=== PATIENT | male | born 2000 | race Caucasian/White ===

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

== ENCOUNTER 2021-10-07 10:32 | Emergency (ER) | payer SELFPAY ==
[2021-10-07 10:49] VITALS: BP 129/82; PULSE 80
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
--- NOTE | 2021-10-07 11:37 | CR ---
PROCEDURE INFORMATION: Exam: XR Right Hand Exam date and time: 10/07/2021 10:47 AM Age: 21 years old Clinical indication: Other: Blocked punch while at work TECHNIQUE: Imaging protocol: XR Right hand. Views: 1 or 2 views. COMPARISON: No relevant prior studies available. FINDINGS: Bones/joints: Normal mineralization and alignment. No fracture, degenerative spur, osseous erosion, joint effusion, joint body or other deformity. Soft tissues: Normal. IMPRESSION: Normal.
== END 2021-10-07 11:55 | disposition home or self-care (01) ==
LOC: DL.ED 10:32
DX: S56.311A Strain of extensor or abductor muscles, fascia and tendons of right thumb at forearm level, initial encounter (principal); Z88.0 Allergy status to penicillin; W22.09XA Striking against other stationary object, initial encounter; Y92.009 Unspecified place in unspecified non-institutional (private) residence as the place of occurrence of the external cause; Y99.0 Civilian activity done for income or pay
CPT/HCPCS: 29125; 73120-RT; 99283-25

== ENCOUNTER 2023-06-20 13:52 | Emergency (ER) | payer OTHER ==
[2023-06-20] MEDS ORDERED: Diphtheria,Pertussis(Acell),Tetanus Vaccine 0.5 ML Syringe IM ONE (14:32)
[2023-06-20] MEDS ORDERED: Lidocaine 1% 5 ML VIAL INJECT ONE (14:32)
[2023-06-20] MEDS ORDERED: Bacitracin Oint 1 GM U/D Packet TOP ONE (14:32)
[2023-06-20 14:50] VITALS: BP 144/85; PULSE 88
== END 2023-06-20 15:30 | disposition home or self-care (01) ==
LOC: DL.ED 13:52
DX: S61.011A Laceration without foreign body of right thumb without damage to nail, initial encounter (principal); Z88.0 Allergy status to penicillin; Z23 Encounter for immunization; W26.8XXA Contact with other sharp object(s), not elsewhere classified, initial encounter; Y99.0 Civilian activity done for income or pay
CPT/HCPCS: 12001; 90471; 99282; 99282-25; A9270-GY; J3490